=== PATIENT | female | born 1945 | race Caucasian/White ===

== ENCOUNTER 2024-09-02 23:57 | Emergency (ER) | payer MEDICARE, OTHER ==
[2024-09-03] MEDS: LORazepam 2 MG/ML SDV IM ONE (00:42)
== END 2024-09-03 03:50 ==
LOC: JP.ED 23:57
DX: S22.089A Unspecified fracture of T11-T12 vertebra, initial encounter for closed fracture (principal); I48.91 Unspecified atrial fibrillation; I25.10 Atherosclerotic heart disease of native coronary artery without angina pectoris; E78.00 Pure hypercholesterolemia, unspecified; I10 Essential (primary) hypertension; Z95.5 Presence of coronary angioplasty implant and graft; Z88.1 Allergy status to other antibiotic agents; Z88.0 Allergy status to penicillin; Z79.01 Long term (current) use of anticoagulants; Z79.899 Other long term (current) drug therapy; X58.XXXA Exposure to other specified factors, initial encounter; Y93.89 Activity, other specified
CPT/HCPCS: 70450; 72125; 72128; 72131; 76377; 96372; 99284; J2060

== ENCOUNTER 2025-07-13 16:50 | Emergency (ER) | payer MEDICARE ==
[2025-07-13] MEDS ORDERED: Lidocaine 1% with EPINEPHrine 1:100,000 50 ML MDV SUBCUT STA (17:10)
[2025-07-13] MEDS: Sodium Chloride 0.9% 10 ML Syringe FLUSH PRN (17:27)
[2025-07-13] MEDS ORDERED: Bacitracin Oint 1 GM U/D Packet TOP ONE (18:08)
== END 2025-07-13 18:35 | disposition home or self-care (01) ==
LOC: JP.ED 16:50
DX: S51.012A Laceration without foreign body of left elbow, initial encounter (principal); I25.10 Atherosclerotic heart disease of native coronary artery without angina pectoris; I10 Essential (primary) hypertension; I48.91 Unspecified atrial fibrillation; E78.00 Pure hypercholesterolemia, unspecified; Z95.5 Presence of coronary angioplasty implant and graft; Z79.899 Other long term (current) drug therapy; Z88.0 Allergy status to penicillin; Z88.1 Allergy status to other antibiotic agents; W18.30XA Fall on same level, unspecified, initial encounter; Y92.129 Unspecified place in nursing home as the place of occurrence of the external cause
CPT/HCPCS: 12001; 73080; 96374; 99283; J3290